=== PATIENT | male | born 1975 | race Hispanic/Latino ===

== ENCOUNTER 2021-09-30 02:43 | Emergency (ER) | payer SELFPAY ==
[2021-09-30] MEDS ORDERED: Lidocaine 1% (PF) 30 ML VIAL ONE (03:01)
[2021-09-30] MEDS ORDERED: Morphine 4 MG/ML VIAL ONE (03:22)
[2021-09-30 03:36] LABS: Hemoglobin 13.8 g/dL (13.5-17.5); Mean Corpuscular HGB CONC 35.4 g/dL (32.0-36.0); Mean Corpuscular Hemoglobin 33.8 pg (27.0-33.0); Mean Corpuscular Volume 95.6 fl (81.2-95.1); Mean Platelet Volume 9.3 fl (7.4-10.4); RBC Distribution Width 15.8 % (11.5-14.5); Red Blood Cell (RBC) Count 4.08 10x6/uL (4.32-5.72); White Blood Cell (WBC) Count 14.6 10x3/uL (3.5-10.5)
[2021-09-30 03:39] LABS: ALT (SGPT) 38 U/L (8-55); AST (SGOT) 67 U/L (5-34); Albumin 2.4 g/dL (3.5-5.0); Alkaline Phosphatase 97 U/L (40-110); Anion Gap 12 mmol/L (10-20); BUN (Urea Nitrogen) 12 mg/dL (8.9-20.6); Bilirubin, Total 6.2 mg/dL (0.2-1.2); Calc. Creatinine Clearance 0 mL/min (70-130); Calcium 8.6 mg/dL (7.8-10.44); Carbon Dioxide 21 mmol/L (22-29); Chloride 97 mmol/L (98-107); Estimated GFR 117; Globulin 3.8 g/dL (2.4-3.5); Glucose 155 mg/dL (70-105); Protein, Total 6.2 g/dL (6.0-8.3); Sodium 125 mmol/L (136-145)
[2021-09-30 04:01] LABS: MDiff Complete? YES; Platelet Count 112 10x3/uL (150-450)
[2021-09-30 04:06] LABS: Band 15 % (5-11); Eosinophils 1 % (0-10); Lymphocytes 3 % (21-51); Metamyelocyte 6 % (0-0); Monocytes 9 % (0-10); Myelocyte 1 % (0-0); Neutrophil 65 % (42-75)
[2021-09-30 04:07] LABS: Platelet Morphology Comment Appears Decreased
[2021-09-30 04:08] LABS: RBC Morphology Normal
[2021-09-30 04:13] LABS: Body Fluid Source Paracentesis Fluid; Clarity Cloudy/Turbid (Clear); Tube # EDTA
[2021-09-30 04:14] LABS: BF Color Yellow
[2021-09-30 04:26] LABS: BF Segmented Neutrophils 13 %; Cell Count Non Hematic 33 %; Lymphocytes 54 %
== END 2021-09-30 07:27 | disposition home or self-care (01) ==
LOC: CSHERS 02:43
DX: E87.70 Fluid overload, unspecified (principal); R18.8 Other ascites; F17.210 Nicotine dependence, cigarettes, uncomplicated; I10 Essential (primary) hypertension; Z79.899 Other long term (current) drug therapy
CPT/HCPCS: 80053; 85025; 87070; 87205; 89051; 96361; 96374; J2001; J2270

== ENCOUNTER 2022-04-15 01:30 | Emergency (ER) | payer OTHER, SELFPAY ==
[2022-04-15] MEDS ORDERED: Ketorolac Tromethamine 30 MG/ML VIAL ONE (02:09)
[2022-04-15 02:22] LABS: #Eosinphils 0.1 10x3/uL (0.0-0.5); #Monocytes 0.4 10x3/uL (0.0-1.1); #Neutrophils 2.4 10x3/uL (1.5-8.4); %Basophils 1.1 % (0.0-2.0); %Eosinophils 3.4 % (0.0-6.0); %Monocytes 11.2 % (0.0-10.0); %Neutrophils 67.7 % (40.0-75.0); Hemoglobin 10.8 g/dL (13.5-17.5); Mean Corpuscular HGB CONC 34.6 g/dL (32.0-36.0); Mean Corpuscular Hemoglobin 32.6 pg (27.0-33.0); Mean Corpuscular Volume 94.3 fl (81.2-95.1); Platelet Count 74 10x3/uL (150-450); RBC Distribution Width 15.1 % (11.5-14.5); Red Blood Cell (RBC) Count 3.31 10x6/uL (4.32-5.72); White Blood Cell (WBC) Count 3.7 10x3/uL (3.5-10.5)
[2022-04-15 02:29] LABS: ALT (SGPT) 21 U/L (8-55); AST (SGOT) 36 U/L (5-34); Albumin 2.4 g/dL (3.5-5.0); Alkaline Phosphatase 98 U/L (40-110); Anion Gap 9 mmol/L (10-20); BUN (Urea Nitrogen) 10 mg/dL (8.9-20.6); Bilirubin, Total 2.8 mg/dL (0.2-1.2); Calc. Creatinine Clearance 0 mL/min (70-130); Calcium 8.3 mg/dL (7.8-10.44); Carbon Dioxide 21 mmol/L (22-29); Chloride 108 mmol/L (98-107); Estimated GFR 116; Globulin 4.5 g/dL (2.4-3.5); Glucose 123 mg/dL (70-105); Lipase 111 U/L (8-78); Potassium 3.6 mmol/L (3.5-5.1); Protein, Total 6.9 g/dL (6.0-8.3); Sodium 134 mmol/L (136-145)
[2022-04-15 03:55] LABS: Platelet Morphology Comment Appears Decreased; RBC Morphology Normal
== END 2022-04-15 03:05 | disposition home or self-care (01) ==
LOC: CSHERS 01:30
DX: R10.84 Generalized abdominal pain (principal); G89.29 Other chronic pain; I10 Essential (primary) hypertension; F17.210 Nicotine dependence, cigarettes, uncomplicated
CPT/HCPCS: 80053; 83690; 85025; 96374; J1885